=== PATIENT | female | born 1950 | race Caucasian/White ===

== ENCOUNTER → 2021-08-22 08:41 | Outpatient (CLI) | payer MEDICARE, OTHER, SELFPAY ==
[2021-08-22 10:59] LABS: Add Manual Diff / Slide Review NO; Basophils Absolute Auto 0 /uL (0-100); Basophils Percent Auto 0.2 % (0-2); Eosinophils Absolute Auto 100 /uL (0-450); Eosinophils Percent Auto 1.2 % (2-4); Hematocrit 44.5 % (36-46); Hemoglobin 15.1 g/dL (12.0-16.0); Lymphocytes Absolute Auto 2100 /uL (1100-4500); Lymphocytes Percent Auto 33.9 % (25-40); Mean Corpuscular HGB Conc 33.9 % (30-36); Mean Corpuscular Volume 88.8 fL (80-100); Monocytes Absolute Auto 400 /uL (0-900); Monocytes Percent Auto 6.3 % (3-14); Neutrophils Absolute Auto 3600 /uL (1500-7000); Neutrophils Percent Auto 58.4 % (50-75); Platelet Count 185 X10^3/uL (150-400); Red Blood Cell Count 5.02 X10^6/uL (4.0-5.2); White Blood Cell Count 6.2 X10^3/uL (4.5-11.0)
[2021-08-22 11:18] LABS: Erythrocyte Sedimentation Rate 3 MM/HR (0-20)
[2021-08-22 12:11] LABS: Alanine Aminotransferase 27 IU/L (<35); Albumin 4.5 g/dL (3.5-5.0); Albumin Globulin Ratio 1.7 (1.0-2.8); Alkaline Phosphatase 86 U/L (38-126); Aspartate Aminotransferase 32 IU/L (14-36); BUN Creatinine Ratio 14.8 (6-22); Bilirubin Total 0.4 mg/dL (0.2-1.3); Blood Urea Nitrogen 13 mg/dL (7-17); Calcium 9.2 mg/dL (8.4-10.2); Carbon Dioxide 30 mmol/L (22-32); Chloride 103 mmol/L (98-107); Estimated Glomerular Filt Rate > 60.0 mL/min (>60); Globulin 2.7 g/dL (1.7-4.1); Glucose 90 mg/dL (80-110); HEMOLYSIS < 15 (0-50); Potassium 4.3 mmol/L (3.4-5.1); Sodium 143 mmol/L (137-145); Total Protein 7.2 g/dL (6.3-8.2)
[2021-08-22 12:14] LABS: High Sensitivity CRP - Cardiac 3.2 mg/L (1.0-3.0)
[2021-08-22 12:35] LABS: Thyroid Stimulating Hormone 2.85 uIU/mL (0.47-4.68)
== END ==
PROVIDERS: Referring Provider Ophthalmology; Visit Provider Ophthalmology
DX: A88.1 Epidemic vertigo (principal)
CPT/HCPCS: 36415; 80053; 84443; 85025; 85651; 86140

== ENCOUNTER → 2021-08-24 07:49 | Outpatient (CLI) | payer MEDICARE, OTHER, SELFPAY ==
--- NOTE | 2021-08-24 | DI.MRI.S_ITS ---
PROCEDURE: MR HEAD/BRAIN WO/W CON INDICATIONS: Epidemic vertigo TECHNIQUE: Noncontrast axial T1 spin echo, axial T2 fast spin echo, sagittal and axial FLAIR, coronal T2 fast spin echo, axial gradient echo, axial diffusion and ADC through the brain. After the administration of contrast, axial and coronal T1 spin echo with fat saturation through the brain. COMPARISON: None. FINDINGS: Image quality: Excellent. CSF spaces: Basal cisterns are patent. No extra-axial fluid collections. Ventricles are normal in size and shape. Brain: No midline shift. No intracranial bleeds . There is a dural-based avidly enhancing focus at the lateral aspect of the right anterosuperior frontal lobe, measuring roughly 26 mm anteroposterior by 13 mm transverse by 10 mm craniocaudal. There is a dural-based avidly enhancing mass at the inferior aspect of the right anteroinferior frontal lobe, adjacent to the sphenoid wing, measuring 23 mm anteroposterior by 20 mm transverse by 10 mm craniocaudal. There is cerebral volume loss for age. There is periventricular white matter chronic small vessel ischemic change. The brainstem appears normal. Diffusion-weighted images demonstrate no acute ischemic insults. No chronic ischemic insults. Normal intravascular flow voids are present. Skull and face: Calvarial marrow is normal in signal. Orbits appear normal. Sinuses: Sinuses and mastoids appear clear. IMPRESSION: 1. There are 2 right frontal meningiomas. 2. Mild volume loss and small vessel ischemic disease. 3. No acute process. No recent infarct. Dictated by: Roberth Maldonado M.D. on 08/24/2021 at 8:37 Approved by: Roberth Maldonado M.D. on 08/24/2021 at 8:40
== END ==
PROVIDERS: PCP Family Medicine; Referring Provider Ophthalmology; Visit Provider Ophthalmology
DX: D32.0 Benign neoplasm of cerebral meninges (principal); I67.82 Cerebral ischemia; A88.1 Epidemic vertigo
CPT/HCPCS: 70553; A9579

== ENCOUNTER → 2025-01-28 08:48 | Outpatient (CLI) | payer MEDICARE, OTHER, SELFPAY ==
--- NOTE | 2025-01-28 | DI.MRI.S_ITS ---
PROCEDURE: MR CERVICAL SPINE WO CON INDICATIONS: STENOSIS TECHNIQUE: Noncontrast sagittal T1 spin echo and T2 fast spin echo, sagittal STIR, foraminal oblique sagittal T2 fast spin echo, and axial gradient echo or T2 fast spin echo through the cervical spine. COMPARISON: None. FINDINGS: Image quality: Diagnostic Alignment and Curvature: No spondylolisthesis Bone Marrow: There is a 1.5 cm left C4 vertebral lesion with high T2 signal. No acute appearing fracture. Multilevel disc desiccation and height loss. Spinal Cord: Cord is unremarkable Paraspinous Soft Tissues: There is a possible 1.6 cm thyroid nodule. No paravertebral fluid collection or mass lesion. C2-C3: No stenosis. C3-C4: Posterior disc osteophyte complex. Uncovertebral and facet arthropathy. Mild central narrowing. [id number] bilateral neural foraminal narrowing. C4-C5: Posterior disc osteophyte complex and ligamentum hypertrophy. Uncovertebral and facet arthropathy. Moderate right and mild left neural foraminal narrowing. C5-C6: Posterior disc osteophyte complex and left paracentral protrusion. Uncovertebral and facet arthropathy. Mild bilateral neural foraminal narrowing. C6-C7: Posterior disc osteophyte complex. Ligamentum hypertrophy. Uncovertebral and facet arthropathy. Mild central narrowing. Qyek-[id number] right and mild left neural foraminal narrowing. C7-T1: No stenosis. Mild facet arthropathy. IMPRESSION: Mild and moderate areas of spondylosis as described above. No critical thecal sac stenosis. No acute fracture. Indeterminate 1.5 cm C4 lesion with high T2 signal, and poor intrinsic T1 signal. Differential includes an atypical hemangioma. Initial CT without contrast could further assess for the typical CT imaging characteristics. However, if the patient has a primary malignancy history, further assessment could be performed with MRI with contrast or PET-CT. 1.6 cm thyroid nodule incidentally seen, nonurgent ultrasound is suggested. Dictated by: Marco Antonio Paige M.D. on 01/28/2025 at 14:19 Approved by: Marco Antonio Paige M.D. on 01/28/2025 at 15:56
--- NOTE | 2025-01-28 | DI.MRI.S_ITS ---
PROCEDURE: MR LUMBAR SPINE WO CON INDICATIONS: STENOSIS TECHNIQUE: Noncontrast sagittal T1 spin echo and T2 fast echo, sagittal STIR, and T2 fast spin echo through the lumbar spine. In cases with scoliosis, additional coronal T2 fast spin echo may be performed. COMPARISON: None. FINDINGS: Image quality: Diagnostic Alignment and Curvature: No spondylolisthesis Bone Marrow: No acute fracture Spinal Cord: Cord terminates in expected position. 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 T12-L1: No stenosis L1-L2: No stenosis L2-L3: Small diffuse disc bulge and mild facet arthropathy bilaterally. No stenosis. L3-L4: Small diffuse disc bulge. Mild facet arthropathy bilaterally. No stenosis. L4-L5: Jhoh-pk-nowgszur diffuse disc bulge and facet arthropathy. Ligamentum hypertrophy. Mild thecal sac narrowing. Mild bilateral neural foraminal narrowing. L5-S1: Small diffuse disc bulge. Small annular fissure. Nqhy-zh-apnzacap facet arthropathy. No stenosis. IMPRESSION: Low-grade spondylosis as described above. No critical stenosis identified. No acute fracture. Dictated by: Marco Antonio Paige M.D. on 01/28/2025 at 14:16 Approved by: Marco Antonio Paige M.D. on 01/28/2025 at 14:18
== END ==
PROVIDERS: PCP Family Medicine; Referring Provider Family Medicine; Visit Provider Student in an Organized Health Care Education/Training Program
DX: M48.02 Spinal stenosis, cervical region (principal); M47.812 Spondylosis without myelopathy or radiculopathy, cervical region; M48.062 Spinal stenosis, lumbar region with neurogenic claudication; M47.816 Spondylosis without myelopathy or radiculopathy, lumbar region; M47.817 Spondylosis without myelopathy or radiculopathy, lumbosacral region; M89.9 Disorder of bone, unspecified; E04.1 Nontoxic single thyroid nodule
CPT/HCPCS: 72141; 72148

== ENCOUNTER → 2025-03-02 11:37 | Outpatient (CLI) | payer MEDICARE, OTHER, SELFPAY ==
--- NOTE | 2025-03-02 | DI.MRI.S_ITS ---
PROCEDURE: MR CERVICAL SPINE WO/W CON INDICATIONS: CERVICALGIA TECHNIQUE: Noncontrast sagittal T1 spin echo and T2 fast spin echo, sagittal STIR, foraminal oblique sagittal T2 fast spin echo, axial gradient echo or T2 fast spin echo through the cervical spine. After the administration of contrast, axial and sagittal T1 spin echo with fat saturation through the cervical spine. COMPARISON: [facility], MR, MR CERVICAL SPINE WO CON, 01/28/2025, 9:06. FINDINGS: Image quality: Excellent. Alignment and curvature: Straightening of the normal cervical lordosis. Marrow: Again seen lesion within the C4 vertebral body measuring to 1.5 centimeters which demonstrates T2 and STIR hyperintense signal, mild T1 hypointense signal and enhancement. Stable in size compared to prior. Spinal cord: Visualized spinal cord has normal size and signal. No cerebellar tonsillar herniation. No abnormal intramedullary enhancement. Paraspinous soft tissues: Again seen right thyroid nodule. Redemonstration of degenerative changes as described on recent prior MRI. IMPRESSION: Stable C4 vertebral body lesion which demonstrates mild enhancement. Differential again includes atypical hemangioma, however metastatic disease is not excluded. Recommend correlation with history of malignancy. CT without contrast could be of value to further evaluate. Recommend follow-up MRI to ensure stability. No other osseous lesions are identified. Dictated by: Himanshu Gandara M.D. on 03/02/2025 at 13:56 Approved by: Himanshu Gandara M.D. on 03/02/2025 at 14:01
--- NOTE | 2025-03-02 11:39 | DI.MRI.S_ITS ---
PROCEDURE: MR HEAD/BRAIN WO/W CON INDICATIONS: CERVALGIA TECHNIQUE: Noncontrast axial T1 spin echo, axial T2 fast spin echo, sagittal and axial FLAIR, coronal T2 fast spin echo, axial gradient echo, axial diffusion and ADC through the brain. After the administration of contrast, axial and coronal and sagittal T1 spin echo with fat saturation through the brain. COMPARISON: [facility], MR, MR HEAD/BRAIN WO/W CON, 08/24/2021, 7:59. FINDINGS: Image quality: Excellent. CSF spaces: Basal cisterns are patent. No extra-axial fluid collections. Ventricles are normal in size and shape. Brain: Increased size of inferior right frontal meningioma measuring approximately 2.6 x 2.6 x 1.4 centimeters, previously 1.9 x 1.7 x 1.0 centimeters. Right frontal meningioma by the vertex is similar to mildly increased in size measuring 2.3 x 2.1 x 1.0 centimeters, previously 2.1 x 2.1 x 0.9 centimeters. No midline shift. No intracranial bleeds. There is cerebral volume loss for age. There is periventricular white matter chronic small vessel ischemic change. The brainstem appears normal. Diffusion- weighted images demonstrate no acute infarct. No chronic ischemic insults. Normal intravascular flow voids are present. Skull and face: Calvarial marrow is normal in signal. Bilateral lens replacements. Otherwise, the orbits are unremarkable. Sinuses: Sinuses and mastoids appear clear. IMPRESSION: Redemonstration of two right frontal meningiomas, the inferior right frontal meningioma has increased in size and the superior right frontal meningioma is similar to mildly increased in size. Recommend follow-up MRI in 6-12 months. Otherwise, no acute intracranial abnormalities or abnormal intracranial enhancement. Age-related global volume loss and chronic microvascular ischemic changes present. Dictated by: Himanshu Gandara M.D. on 03/02/2025 at 13:50 Approved by: Himanshu Gandara M.D. on 03/02/2025 at 13:56
== END ==
PROVIDERS: PCP Student in an Organized Health Care Education/Training Program; Referring Provider Neurological Surgery; Visit Provider Neurological Surgery
DX: D32.9 Benign neoplasm of meninges, unspecified (principal); M54.12 Radiculopathy, cervical region; D18.09 Hemangioma of other sites
CPT/HCPCS: 70553; 72156; A9579